=== PATIENT | female | born 1995 | race African-American/Black ===

== ENCOUNTER 2018-11-17 02:25 | Observation (INO) | payer MEDICAID ==
[~2018-11-17] VITALS: Ht 167.6 cm; Wt 79.4 kg
[2018-11-17] MEDS: LACTATED RINGERS 1,000 ML IV SCH ×2 (04:04→06:03)
[2018-11-17 05:40] LABS: CLARITY URINE CLEAR (CLEAR); COLOR URINE YELLOW (YELLOW); KETONES URINE TRACE (NEGATIVE); LEUKOCYTE ESTERASE URINE NEGATIVE (NEGATIVE); NITRITE URINE NEGATIVE (NEGATIVE); OCCULT BLOOD URINE NEGATIVE (NEGATIVE); PH URINE 5.5 (4.5-8.0); PROTEIN URINE 2+ (NEGATIVE); SPECIFIC GRAVITY URINE 1.024 (1.005-1.030)
[2018-11-17] MEDS ORDERED: ACETAMINOPHEN 500MG TABLET PO SCH (05:45)
[2018-11-17] MEDS ORDERED: LABE200T28 PO (07:26)
[2018-11-17] MEDS ORDERED: FERR325T6 PO (07:26)
[2018-11-17] MEDS ORDERED: PRENATAL VITAMIN (07:26)
[2018-11-17 12:00] LABS: OPIATES URINE SCREEN NEGATIVE (NEGATIVE)
[2018-11-17 12:01] LABS: *AMPHETAMINES SCREEN URINE NEGATIVE (NEGATIVE); *BARBITURATES SCREEN URINE NEGATIVE (NEGATIVE); *BENZODIAZEPINES SCREEN URINE NEGATIVE (NEGATIVE); PHENCYCLIDINE URINE SCREEN NEGATIVE (NEGATIVE)
[2018-11-17 12:02] LABS: *COCAINE SCREEN URINE NEGATIVE (NEGATIVE); METHADONE URINE SCREEN NEGATIVE (NEGATIVE)
[2018-11-17 12:11] LABS: CANNABINOID URINE SCREEN PRESUMTIVE POSITIVE (NEGATIVE)
[2018-11-24 08:20] LABS: CANNABINOID CONFIRMATION URINE Positive (.)
== END 2018-11-17 12:00 | disposition home or self-care (01) ==
LOC: 8 EST LDRP 02:25
PROVIDERS: ADMIT Obstetrics & Gynecology; ATTEND Obstetrics & Gynecology
DX: O36.8120 Decreased fetal movements, second trimester, not applicable or unspecified (principal); O26.892 Other specified pregnancy related conditions, second trimester; R10.2 Pelvic and perineal pain; M25.552 Pain in left hip; M25.551 Pain in right hip; R03.0 Elevated blood-pressure reading, without diagnosis of hypertension; Z3A.27 27 weeks gestation of pregnancy
CPT/HCPCS: 76815; 76818; 80305; 80349; 81003; 97116; 97161; 97535; 99281; G0378; 96360; 96361

== ENCOUNTER 2019-09-08 21:34 | Emergency (ER) | payer SELFPAY ==
[~2019-09-08] VITALS: Ht 167.6 cm; Wt 75.0 kg
[~2019-09-08 21:34] MED LIST: FERR325T6 PO; LABE200T28 PO; PRENATAL VITAMIN
[2019-09-09] MEDS ORDERED: HYDROCODONE/ACETAMINOPHEN 5/325MG TABLET PO ONE (00:30)
[2019-09-09] MEDS ORDERED: KETOROLAC 60MG/2ML VIAL IM ONE (00:30)
[2019-09-09 01:40] VITALS: BP 141/74
== END 2019-09-09 01:46 | disposition home or self-care (01) ==
LOC: ER 21:34
DX: J02.0 Streptococcal pharyngitis (principal); I10 Essential (primary) hypertension; Z98.890 Other specified postprocedural states
CPT/HCPCS: 96372; 99283; J1885

== ENCOUNTER 2020-03-26 14:37 | Observation (INO) | payer MEDICAID ==
[~2020-03-26] VITALS: Ht 167.6 cm; Wt 80.7 kg
[2020-03-26] MEDS ORDERED: CEPH-569 MT (15:50)
== END 2020-03-26 15:55 | disposition home or self-care (01) ==
LOC: 8 EST LDRP 14:37
PROVIDERS: ADMIT Obstetrics & Gynecology; ATTEND Obstetrics & Gynecology
DX: O34.63 Maternal care for abnormality of vagina, third trimester (principal); N75.0 Cyst of Bartholin's gland; Z3A.30 30 weeks gestation of pregnancy
CPT/HCPCS: 59025; G0378; 99281

== ENCOUNTER 2023-10-10 19:55 | Emergency (ER) | payer MEDICAID ==
[~2023-10-10] VITALS: Ht 167.6 cm; Wt 76.0 kg
[~2023-10-10 19:55] MED LIST changes: +CEPH-569 MT; -LABE200T28 PO; +LABE200T9 PO
[2023-10-10 20:32] VITALS: BP 158/96; PULSE 76; RESP 15; TEMP 97.6; O2SAT 100
[2023-10-10 21:03] LABS: CLARITY URINE CLOUDY (CLEAR); COLOR URINE YELLOW (YELLOW); GLUCOSE URINE NEGATIVE (NEGATIVE); KETONES URINE TRACE (NEGATIVE); LEUKOCYTE ESTERASE URINE NEGATIVE (NEGATIVE); NITRITE URINE POSITIVE (NEGATIVE); OCCULT BLOOD URINE NEGATIVE (NEGATIVE); PH URINE 5.5 (4.5-8.0); PROTEIN URINE NEGATIVE (NEGATIVE); SPECIFIC GRAVITY URINE 1.025 (1.005-1.030)
[2023-10-10 21:22] LABS: BACTERIA URINE 4+; SQUAMOUS EPITHELIAL CELL URINE 1+ /lpf (RARE/1+)
[2023-10-10 21:23] LABS: RBC URINE 0-2 /hpf (0-2); WBC URINE 0-2 /hpf (0-2)
[2023-10-10] MEDS ORDERED: CEFTRIAXONE SODIUM 500MG VIAL IM ONE (23:45)
[2023-10-11] MEDS ORDERED: METR70GE5 VG (00:57)
[2023-10-11] MEDS ORDERED: CEPH500C2 MT (00:57)
== END 2023-10-11 01:52 | disposition home or self-care (01) ==
LOC: ER 19:55
DX: N39.0 Urinary tract infection, site not specified (principal); N76.0 Acute vaginitis; I10 Essential (primary) hypertension; Z98.890 Other specified postprocedural states; Z79.899 Other long term (current) drug therapy
CPT/HCPCS: 99284; 81003; 81025; 87086; 87186; 87077; 87210; J0696

== ENCOUNTER 2025-03-06 20:04 | Emergency (ER) | payer MEDICAID ==
[~2025-03-06] VITALS: Ht 167.6 cm; Wt 75.0 kg
[~2025-03-06 20:04] MED LIST changes: +CEPH500C2 MT; +METR70GE27 VG
[2025-03-06 20:52] VITALS: O2SAT 100
[2025-03-06] MEDS: KETOROLAC 30MG/ML VIAL IM ONE (23:19)
[2025-03-06] MEDS: METOCLOPRAMIDE HCL 10MG TABLET PO ONE (23:19)
[2025-03-07 00:39] VITALS: BP 143/95; PULSE 72; RESP 16; TEMP 37.1; O2SAT 100
== END 2025-03-07 00:43 | disposition home or self-care (01) ==
LOC: ER 20:04
DX: R51.9 Headache, unspecified (principal); R05.9 Cough, unspecified; I10 Essential (primary) hypertension; Z98.890 Other specified postprocedural states; Z79.899 Other long term (current) drug therapy
CPT/HCPCS: 99283; 71045; 81025; 96372; J1885; J8597